=== PATIENT | male | born 1970 | race African-American/Black ===

== ENCOUNTER 2025-04-06 04:05 | Emergency (ER) | payer OTHER, MEDICAID ==
[~2025-04-06] VITALS: Ht 180.3 cm; Wt 127.0 kg
[2025-04-06 04:10] VITALS: BP 129/81; PULSE 96; RESP 18; TEMP 36.6; O2SAT 100
[2025-04-06 04:26] VITALS: O2SAT 95
[2025-04-06 04:49] LABS: BASOPHILS % 0.4 % (0.0-2.0); EOSINOPHILS % 1.0 % (0.0-5.0); HEMATOCRIT. 42.5 % (42.0-52.0); HEMOGLOBIN. 14.0 g/dL (14.0-18.0); LYMPHOCYTES % 23.5 % (20.0-50.0); MEAN PLATELET VOLUME 8.7 fl (7.4-10.4); MONOCYTES % 8.0 % (2.0-8.0); NEUTROPHILS % 67.1 % (40.0-76.0); PLATELET 240 x1000/uL (130-400); RED BLOOD CELL COUNT 4.98 mill/uL (4.7-6.1); RED CELL DISTRIBUTION WIDTH 16.1 % (11.6-14.6)
[2025-04-06 05:02] LABS: CREATININE 1.5 mg/dL (0.6-1.3)
[2025-04-06 05:03] LABS: ETHANOL BLOOD < 10 mg/dL (<10); UREA NITROGEN BLOOD 16 mg/dL (9-23)
[2025-04-06 05:04] LABS: TROPONIN I HIGH SENSITIVITY 4 ng/L (3.0-53)
[2025-04-06 05:06] LABS: INR 0.9
[2025-04-06 08:21] LABS: *AMPHETAMINES SCREEN URINE NEGATIVE (NEGATIVE); *BENZODIAZEPINES SCREEN URINE NEGATIVE (NEGATIVE)
[2025-04-06 08:22] LABS: *BARBITURATES SCREEN URINE NEGATIVE (NEGATIVE); *COCAINE SCREEN URINE NEGATIVE (NEGATIVE); CANNABINOID URINE SCREEN NEGATIVE (NEGATIVE); ECSTASY MDMA SCREEN URINE NEGATIVE (NEGATIVE); METHADONE URINE SCREEN NEGATIVE (NEGATIVE); OPIATES URINE SCREEN NEGATIVE (NEGATIVE); PHENCYCLIDINE URINE SCREEN NEGATIVE (NEGATIVE)
== END 2025-04-06 07:45 | disposition left against medical advice (07) ==
LOC: ER 04:05 → EDBEDREQTM 06:35 → EDBEDREQ 06:35 → CANRESERV 06:42 → ENRESERV 06:42 → CANBEDREQ 07:25 → ER 07:45
DX: R55 Syncope and collapse (principal); E11.9 Type 2 diabetes mellitus without complications; I10 Essential (primary) hypertension; I11.9 Hypertensive heart disease without heart failure; F20.9 Schizophrenia, unspecified; Z79.899 Other long term (current) drug therapy; Z88.0 Allergy status to penicillin; Z91.012 Allergy to eggs
CPT/HCPCS: 36415; 71045; 80048; 80305; 80320; 83880; 84484; 85025; 93005; 99285; G0480